=== PATIENT | male | born 1960 | race Caucasian/White ===

== ENCOUNTER → 2020-03-06 13:19 | Outpatient (CLI) | payer OTHER, SELFPAY ==
--- NOTE | 2020-03-06 13:29 | CT_ITS ---
STUDY: CT CHEST WITHOUT CONTRAST REASON FOR EXAM: Male, 59 years old. PT STATED 28 YEAR SMOKER X 2PPD, HX OF PROSTATE CA RADIATION DOSAGE (If Supplied By Facility): CTDIvol = ( 16.95 ) mGy, DLP = ( 682.07 ) mGycm TECHNIQUE: Transaxial imaging was performed without the administration of intravenous contrast material. Multiplanar coronal and sagittal images were reformatted. Individualized dose optimization techniques were used for this CT. COMPARISON: None. FINDINGS: Small benign-appearing bilateral axillary lymph nodes. 2 mm noncalcified nodule in the upper lateral anterior aspect of the right upper lobe as seen on axial image #34. There is a 2 cm x 2.1 cm spiculated nodule in the inferior aspect of the lingular segment of the left upper lobe adjacent to the left cardiac shadow and major fissure. Correlation with a PET scan is recommended for further evaluation. Nonspecific groundglass appearance in the left lower lobe. The There is no demonstrated pleural abnormality. Minimal anterior pericardial thickening. Normal mediastinum. Normal hilar regions. Normal unenhanced pulmonary arteries. Normal aorta arch and descending thoracic aorta. There are degenerative changes of the thoracic spine. There is a 4.9 cm x 3.4 cm hypodense nodule in the anterior portion of the midportion of the left kidney suggestive of a cyst. CT/Chest without Contrast IMPRESSION: 2 cm x 2.1 cm PICC line nodule in the inferior aspect of the lingular segment of the left upper lobe adjacent to the left cardiac border as described. Correlation with a PET scan is recommended. Electronically Signed: Mateusz Childs, at 15:06 EDT , Service support ,
== END ==
DX: F17.210 Nicotine dependence, cigarettes, uncomplicated (principal); Z12.2 Encounter for screening for malignant neoplasm of respiratory organs
CPT/HCPCS: 71250

== ENCOUNTER → 2020-04-01 07:32 | Outpatient (CLI) | payer OTHER, SELFPAY ==
--- NOTE | 2020-04-01 06:32 | PET_ITS ---
EXAMINATION: FDG PET CT INDICATIONS: A 59-year-old male with history of carcinoma of the prostate presenting for restaging examination and evaluation of pulmonary nodularity. COMPARISON EXAMINATION: CT of the chest report dated 03/06/20. TECHNIQUE: Following the intravenous administration of 18.9 mCi of F-18 deoxyglucose via the left antecubital fossa, multiplanar image acquisitions of the neck, chest, abdomen and pelvis to level of mid thigh, obtained at one hour post radiopharmaceutical administration contemporaneously interpreted with the current CT of the neck, chest, abdomen and pelvis to level of mid thigh, dated 04/01/[address] of the chest report dated 03/06/20 reveal: SERUM GLUCOSE LEVEL: 104 mg/dl. HEIGHT: 72 inches. WEIGHT: 237 lbs. FINDINGS: 1. There is no quantitative scintigraphic evidence of abnormal increased glucose metabolism within the context of the left lower anterior lung-lingula to correlate with structural changes noted on review of CT of the thorax dated 04/01/20. 2. Normal physiologic distribution of the radiopharmaceutical is apparent in the hepatic and splenic parenchyma, both renal units, bladder and visualized intestinal tract. There is uniform distribution of the radiopharmaceutical concentration defined in the visualized cerebellar hemispheres and cerebral cortical structures. Diffuse intestinal tract activity is noted throughout all four quadrants of the abdominal-pelvic retroperitoneum and mesentery consistent with normal physiologic distribution of the radiopharmaceutical. Pertinent CT findings are as follows. CHEST: There are no additional parenchymal densities-nodules defined in the right and left hemithorax. Paraseptal emphysematous change is noted in the bilateral upper medial lung zones. Right and left axillary soft tissue with fatty hilus is non-glucose avid. Atherosclerotic calcification is defined in the thoracic aorta without evidence of dilatation, aneurysm formation. ABDOMEN AND PELVIS: There is fatty metamorphosis demonstrated in the hepatic parenchyma. Atherosclerotic calcification is defined in the abdominal aorta without evidence of dilatation, aneurysm formation. Pelvic arterial calcification is demonstrated. Fat-containing bilateral inguinal hernias are demonstrated. Right and left inguinal soft tissue with fatty hilus is ametabolic. Cyst formation appears evident in the left kidney with photopenia on review of the metabolic data set. The prostate gland appears surgically absent. SKELETAL: Degenerative changes defined in the cervical, thoracic and lumbar spine demonstrate no evidence of glucose hypermetabolism. PET/PET/CT Tumor Base -Thigh Init IMPRESSION: 1. NEGATIVE EXAMINATION. There is no quantitative scintigraphic evidence of abnormal increased glucose metabolism within the context of the left lower anterior lung-lingula to correlate with structural changes noted on review of CT of the thorax dated 04/01/20. 2. Anatomic stability may be ensured in the nonglucose avid lingular parenchymal density with repeat CT of the thorax in three-six months. (Tracy, [facility] in Thoracic [facility] Cardiovascular Surgery 14:292, 2002). Electronic Signature Pete Howell D.O. Electronically Signed: Pete Howell DO at 22:25 EDT Tel , Service support ,
== END ==
DX: R91.1 Solitary pulmonary nodule (principal)
CPT/HCPCS: 78815; A9552

== ENCOUNTER → 2020-09-05 14:06 | Outpatient (CLI) | payer OTHER, SELFPAY ==
--- NOTE | 2020-09-05 14:12 | CT_ITS ---
STUDY: CT CHEST WITHOUT CONTRAST REASON FOR EXAM: Male, 60 years old. LUNG NODULE FOLLOW UP -- HX-PROSTATE CA RADIATION DOSAGE (If Supplied By Facility): CTDIvol = ( 16.58 ) mGy, DLP = ( 575.81 ) mGycm TECHNIQUE: Transaxial imaging was performed without the administration of intravenous contrast material. Multiplanar coronal and sagittal images were reformatted. Individualized dose optimization techniques were used for this CT. COMPARISON: Comparison is made with prior examination dated 03/06/2020. FINDINGS: Stable small benign-appearing bilateral axillary lymph nodes. Hyperinflation. Emphysematous changes in the upper lobes more prominent in the anterior aspect of the right upper lobe. Stable 2.1 cm x 2 cm suspected nodule in the inferior aspect of the lingular segment of the left upper lobe adjacent to the left cardiac shadow. This most likely represents a scar. Prior PET scan was unremarkable at that site. Stable 2 mm noncalcified nodule in the upper lateral anterior aspect of the right upper lobe. There is no demonstrated pleural abnormality. There are calcifications of the coronary arteries. There are multiple small lymph nodes within the mediastinum, which are normal in size and morphology most compatible with reactive lymph hyperplasia. Normal hilar regions. Normal unenhanced pulmonary arteries. There is atherosclerotic calcification of the aortic arch with tortuosity and elongation of the aortic arch and descending thoracic aorta. There are multi-level degenerative changes of the thoracic spine. There is no demonstrated abnormality of the visualized upper abdomen. CT/Chest without Contrast IMPRESSION: Stable examination. Electronically Signed: Mateusz Childs, at 15:11 EDT , Service support ,
== END ==
DX: R91.8 Other nonspecific abnormal finding of lung field (principal)
CPT/HCPCS: 71250